=== PATIENT | female | born 2000 | race Two or more races ===

== ENCOUNTER 2022-01-04 13:31 | Inpatient (IN) | payer MEDICAID, OTHER ==
[~2022-01-04] VITALS: Ht 157.5 cm; Wt 128.7 kg
[2022-01-04] MEDS ORDERED: ALUM & MAG HYDROX-SIMETH LIQ(MAALOX) 30 ML PO ONE (15:00)
[2022-01-04] MEDS ORDERED: ONDANSETRON ODT 4 MG TAB PO ONE (15:00)
[2022-01-04 15:21] LABS: Basophils # (auto) 0 10 ^3/uL (0-0.2); Eosinophils # (auto) 0 10 ^3/uL (0-0.8); Mean Corpuscular Volume 82.2 fL (80.0-100.0); Monocytes # (auto) 0.5 10 ^3/uL (0-1.3); Monocytes % (auto) 2.1 % (0.0-12.0)
[2022-01-04 15:24] LABS: Basophils % (auto) 0.1 % (0.0-2.0); Hematocrit 44.5 % (36.0-46.0); Hemoglobin 14.2 g/dL (12.2-16.2); Lymphocytes % (auto) 4.4 % (10.0-50.0); Mean Corpuscular Hemoglobin 26.2 pg (28.0-32.0); Mean Corpuscular Hgb Conc. 31.9 g/dL (32.0-36.0); Neutrophils # (auto) 21.3 10 ^3/uL (1.6-8.6); Neutrophils % (auto) 93.4 % (37.0-80.0); Red Blood Cells 5.41 10^6/uL (4.0-5.20); Red Cell Distribution Width 15.7 % (11.8-14.3); White Blood Cell 22.8 10^3/uL (4.4-10.8)
[2022-01-04 15:26] LABS: Urine Bacteria FEW /hpf (None Seen); Urine Blood TRACE /uL (Negative); Urine Mucus FEW (None Seen); Urine Specific Gravity 1.028 (1.001-1.035); Urine WBC 2 /hpf (0 - 5)
[2022-01-04 15:57] LABS: Albumin 4.1 g/dL (3.4-5.0); BUN/Creatinine Ratio 15.3; Calcium 9.4 mg/dL (8.5-10.1); Potassium 3.8 mmol/L (3.5-5.1)
[2022-01-04 16:00] LABS: Bilirubin, Total 0.5 mg/dL (0.2-1.0); Total Protein 8.6 g/dL (6.4-8.2)
[2022-01-04] MEDS ORDERED: IOHEXOL 300 MG/ML 100ML BOTTLE IJ ONE (17:35)
[2022-01-04] MEDS ORDERED: ONDANSETRON HCL 4 MG/2 ML VIAL IV ONE (18:45)
[2022-01-04] MEDS ORDERED: MORPHINE SULFATE 4 MG/ML SYR/VIAL IV ONE (18:45)
[2022-01-04] MEDS ORDERED: PIPERACILLIN-TAZO 4.5GM 100 ML IV SCH (19:10)
[2022-01-04] MEDS ORDERED: LACTATED RINGER'S 1,000 ML IV ONE (19:15)
[2022-01-04] MEDS ORDERED: VANCOMYCIN 1GM/250ML 250 ML IV SCH ×2 (19:15→23:00)
[2022-01-04] MEDS: POTASSIUM CHLORIDE 20 MEQ in D5W/LACTATED RINGERS 1,000 ML IV SCH (19:45)
[2022-01-04] MEDS ORDERED: D5W/ SOD CHL 0.9%/KCL 20MEQ 0 ML IV ONE (20:59)
[2022-01-04] MEDS: SODIUM CHLOR 0.9% PF (SALINE LOCK) 10ML VIAL/SYR IV SCH (22:00)
[2022-01-04] MEDS: FAMOTIDINE (10MG/ML) 2ML VL IV SCH (22:32)
[2022-01-04] MEDS: MORPHINE SULFATE INJ 2 MG/ml SYRG IV PRN (22:33)
[2022-01-04] MEDS ORDERED: MORPHINE SULFATE INJ 2 MG/ml SYRG IV PRN (22:45)
[2022-01-04] MEDS ORDERED: NITROGLYCERIN 0.4 MG SL TAB SL PRN (22:45)
[2022-01-05] MEDS ORDERED: metroNIDAZOLE 500MG/100ML 100 ML IV SCH
[2022-01-05] MEDS: ONDANSETRON HCL 4 MG/2 ML VIAL IV PRN (01:34)
[2022-01-05] MEDS: VANCOMYCIN 1GM/250ML 250 ML IV SCH ×3 (02:59→20:01)
[2022-01-05] MEDS: PROMETHAZINE HCL 25 MG/ML 1ML IV PRN ×2 (02:59→08:44)
[2022-01-05] MEDS: PIPERACILLIN-TAZO 4.5GM 100 ML IV SCH ×3 (05:06→21:40)
[2022-01-05] MEDS: SODIUM CHLOR 0.9% PF (SALINE LOCK) 10ML VIAL/SYR IV SCH ×3 (06:02→21:40)
[2022-01-05 06:16] LABS: Basophils # (auto) 0 10 ^3/uL (0-0.2); Eosinophils # (auto) 0 10 ^3/uL (0-0.8); Lymphocytes # (auto) 1.7 10 ^3/uL (0.4-5.4); Monocytes # (auto) 0.7 10 ^3/uL (0-1.3); Red Cell Distribution Width 15.8 % (11.8-14.3)
[2022-01-05 06:25] LABS: Basophils % (auto) 0.1 % (0.0-2.0); Hematocrit 39.7 % (36.0-46.0); Hemoglobin 12.8 g/dL (12.2-16.2); Lymphocytes % (auto) 6.6 % (10.0-50.0); Mean Corpuscular Hemoglobin 26.2 pg (28.0-32.0); Mean Corpuscular Hgb Conc. 32.2 g/dL (32.0-36.0); Mean Corpuscular Volume 81.5 fL (80.0-100.0); Monocytes % (auto) 2.6 % (0.0-12.0); Neutrophils # (auto) 23.6 10 ^3/uL (1.6-8.6); Neutrophils % (auto) 90.7 % (37.0-80.0); Red Blood Cells 4.87 10^6/uL (4.0-5.20)
[2022-01-05 06:28] LABS: Albumin 3.3 g/dL (3.4-5.0); Calcium 8.8 mg/dL (8.5-10.1); Potassium 3.6 mmol/L (3.5-5.1)
[2022-01-05 06:32] LABS: BUN/Creatinine Ratio 14.6; Total Protein 7.7 g/dL (6.4-8.2)
[2022-01-05] MEDS: POTASSIUM CHLORIDE 20 MEQ in D5W/LACTATED RINGERS 1,000 ML IV SCH ×2 (07:47→15:57)
[2022-01-05] MEDS: MORPHINE SULFATE INJ 2 MG/ml SYRG IV PRN ×4 (08:33→22:26)
[2022-01-05] MEDS: metroNIDAZOLE 500MG/100ML 100 ML IV SCH ×3 (10:11→15:19)
[2022-01-05] MEDS: FAMOTIDINE (10MG/ML) 2ML VL IV SCH ×2 (10:11→21:40)
[2022-01-05] MEDS ORDERED: SUCCINYLCHOLINE CHLORIDE 20 MG/ML 10ML VIAL IV ONE (10:13)
[2022-01-05 10:24] LABS: INR 1.22 (0.9-1.15); Partial Thromboplastin Time 29.5 sec (24.6-33.4)
[2022-01-05] MEDS ORDERED: NEOSTIGMINE 1 MG/ML INJ (10mg/10ML VIAL) IV ONE (10:26)
[2022-01-05] MEDS ORDERED: GLYCOPYRROLATE 0.2 MG/ML 1ML VIAL IV ONE (10:26)
[2022-01-05] MEDS ORDERED: POVIDONE IODINE 10 % TOPICAL OINT 30GM TOP ONE (10:45)
[2022-01-05] MEDS ORDERED: fentaNYL CITRATE 100 MCG/2 ML VL ONE (10:51)
[2022-01-05] MEDS ORDERED: ROCURONIUM 10MG/ML 10ML VIAL IV ONE (10:52)
[2022-01-05] MEDS ORDERED: MIDAZOLAM HCL 2MG/2ML 2ml VIAL (1mg/ml) ONE (10:52)
[2022-01-05] MEDS ORDERED: LABETALOL HCL 5 MG/ML 4ML SYRINGE IV ONE (11:19)
[2022-01-05] MEDS ORDERED: PROPOFOL 10 MG/ML 20 ML IV ONE ×2 (11:26→11:34)
[2022-01-05] MEDS ORDERED: ONDANSETRON HCL 4 MG/2 ML VIAL ONE (11:37)
[2022-01-05] MEDS ORDERED: HYDROmorphone HCL 2 MG/ML VL/or syr IV ONE (11:58)
[2022-01-05] MEDS ORDERED: HYDROmorphone HCL 2 MG/ML VL/or syr ONE (11:58)
[2022-01-05] MEDS ORDERED: METOCLOPRAMIDE HCL 5MG/ml INJ 2ml VIAL IV PRN (12:00)
[2022-01-05] MEDS ORDERED: HYDROmorphone HCL 2 MG/ML VL/or syr IV PRN ×2 (12:00)
[2022-01-05 13:00] VITALS: BP 135/85
[2022-01-05 17:00] VITALS: BP 133/77
[2022-01-05 22:00] VITALS: BP 119/62
[2022-01-06] MEDS: SODIUM CHLORIDE 0.9% 1,000 ML IV SCH ×2 (00:37→16:06)
[2022-01-06] MEDS: MORPHINE SULFATE INJ 2 MG/ml SYRG IV PRN ×6 (02:16→23:58)
[2022-01-06] MEDS: ONDANSETRON HCL 4 MG/2 ML VIAL IV PRN ×4 (02:23→19:52)
[2022-01-06] MEDS: VANCOMYCIN 1GM/250ML 250 ML IV SCH ×2 (03:01→11:11)
[2022-01-06 04:37] VITALS: BP 124/71
[2022-01-06] MEDS: PIPERACILLIN-TAZO 4.5GM 100 ML IV SCH ×3 (04:41→21:09)
[2022-01-06 06:20] LABS: Basophils # (auto) 0 10 ^3/uL (0-0.2); Basophils % (auto) 0.1 % (0.0-2.0); Eosinophils # (auto) 0 10 ^3/uL (0-0.8); Eosinophils % (auto) 0.1 % (0.0-7.0); Hematocrit 37.5 % (36.0-46.0); Lymphocytes # (auto) 1.5 10 ^3/uL (0.4-5.4); Lymphocytes % (auto) 8.1 % (10.0-50.0); Mean Corpuscular Hemoglobin 27.1 pg (28.0-32.0); Mean Corpuscular Hgb Conc. 32.1 g/dL (32.0-36.0); Mean Corpuscular Volume 84.6 fL (80.0-100.0); Monocytes # (auto) 0.4 10 ^3/uL (0-1.3); Monocytes % (auto) 2.4 % (0.0-12.0); Neutrophils # (auto) 16.4 10 ^3/uL (1.6-8.6); Neutrophils % (auto) 89.3 % (37.0-80.0); Red Blood Cells 4.43 10^6/uL (4.0-5.20); Red Cell Distribution Width 16.2 % (11.8-14.3); White Blood Cell 18.3 10^3/uL (4.4-10.8)
[2022-01-06] MEDS: SODIUM CHLOR 0.9% PF (SALINE LOCK) 10ML VIAL/SYR IV SCH ×3 (06:38→21:09)
[2022-01-06 09:00] VITALS: BP 141/74
[2022-01-06] MEDS: FAMOTIDINE (10MG/ML) 2ML VL IV SCH ×2 (09:24→21:09)
[2022-01-06] MEDS: metroNIDAZOLE 500MG/100ML 100 ML IV SCH (09:24)
[2022-01-06 13:00] VITALS: BP 137/76
[2022-01-06] MEDS ORDERED: GASTROGRAFIN 120 ML SOL ONE (13:06)
[2022-01-06 17:00] VITALS: BP 132/70
[2022-01-06] MEDS: PROMETHAZINE HCL 25 MG/ML 1ML IV PRN ×2 (17:55→23:57)
[2022-01-06 22:00] VITALS: BP 124/79
[2022-01-07] MEDS: SODIUM CHLORIDE 0.9% 1,000 ML IV SCH ×2 (04:02→16:45)
[2022-01-07 05:00] VITALS: BP 132/74
[2022-01-07] MEDS: PIPERACILLIN-TAZO 4.5GM 100 ML IV SCH ×3 (05:04→20:55)
[2022-01-07] MEDS: SODIUM CHLOR 0.9% PF (SALINE LOCK) 10ML VIAL/SYR IV SCH ×3 (05:05→21:02)
[2022-01-07] MEDS: MORPHINE SULFATE INJ 2 MG/ml SYRG IV PRN ×2 (06:24→20:56)
[2022-01-07 08:57] LABS: Basophils # (auto) 0.1 10 ^3/uL (0-0.2); Basophils % (auto) 0.3 % (0.0-2.0); Eosinophils # (auto) 0 10 ^3/uL (0-0.8); Eosinophils % (auto) 0.1 % (0.0-7.0); Hematocrit 38.9 % (36.0-46.0)
[2022-01-07 08:59] LABS: Hemoglobin 12.5 g/dL (12.2-16.2); Lymphocytes # (auto) 1.5 10 ^3/uL (0.4-5.4); Lymphocytes % (auto) 8.2 % (10.0-50.0); Mean Corpuscular Hemoglobin 26.5 pg (28.0-32.0); Mean Corpuscular Hgb Conc. 32.1 g/dL (32.0-36.0); Mean Corpuscular Volume 82.8 fL (80.0-100.0); Monocytes # (auto) 0.8 10 ^3/uL (0-1.3); Monocytes % (auto) 4.5 % (0.0-12.0); Neutrophils # (auto) 15.8 10 ^3/uL (1.6-8.6); Neutrophils % (auto) 86.9 % (37.0-80.0); Red Blood Cells 4.69 10^6/uL (4.0-5.20); Red Cell Distribution Width 15.9 % (11.8-14.3); White Blood Cell 18.2 10^3/uL (4.4-10.8)
[2022-01-07 09:11] VITALS: BP 119/63
[2022-01-07] MEDS: ENOXAPARIN SOD 40 MG/0.4 ML SYRINGE SC SCH (09:37)
[2022-01-07] MEDS: FAMOTIDINE (10MG/ML) 2ML VL IV SCH ×2 (09:37→20:55)
[2022-01-07 13:16] VITALS: BP 144/84
[2022-01-07 17:20] VITALS: BP 113/77
[2022-01-07 22:00] VITALS: BP 108/51
[2022-01-08] MEDS: MORPHINE SULFATE INJ 2 MG/ml SYRG IV PRN ×4 (02:17→20:08)
[2022-01-08] MEDS: SODIUM CHLORIDE 0.9% 1,000 ML IV SCH ×2 (03:17→19:25)
[2022-01-08] MEDS: PIPERACILLIN-TAZO 4.5GM 100 ML IV SCH ×3 (04:37→22:19)
[2022-01-08 05:00] VITALS: BP 131/74
[2022-01-08] MEDS: SODIUM CHLOR 0.9% PF (SALINE LOCK) 10ML VIAL/SYR IV SCH ×3 (05:19→22:20)
[2022-01-08 09:00] VITALS: BP 114/60
[2022-01-08] MEDS: FAMOTIDINE (10MG/ML) 2ML VL IV SCH ×2 (09:11→22:19)
[2022-01-08] MEDS: ENOXAPARIN SOD 40 MG/0.4 ML SYRINGE SC SCH (09:12)
[2022-01-08 11:17] LABS: Basophils # (auto) 0 10 ^3/uL (0-0.2); Eosinophils # (auto) 0.1 10 ^3/uL (0-0.8); Mean Corpuscular Hemoglobin 26.4 pg (28.0-32.0); Mean Corpuscular Hgb Conc. 32.1 g/dL (32.0-36.0); Neutrophils # (auto) 9.4 10 ^3/uL (1.6-8.6); Red Cell Distribution Width 15.5 % (11.8-14.3)
[2022-01-08 11:19] LABS: Basophils % (auto) 0.1 % (0.0-2.0); Eosinophils % (auto) 1.1 % (0.0-7.0); Hematocrit 38.1 % (36.0-46.0); Hemoglobin 12.2 g/dL (12.2-16.2); Mean Corpuscular Volume 82.3 fL (80.0-100.0); Monocytes # (auto) 0.8 10 ^3/uL (0-1.3); Monocytes % (auto) 6.3 % (0.0-12.0); Neutrophils % (auto) 76.5 % (37.0-80.0); Nucleated Red Blood Cells % 0.1 %; Red Blood Cells 4.62 10^6/uL (4.0-5.20); White Blood Cell 12.2 10^3/uL (4.4-10.8)
[2022-01-08 13:00] VITALS: BP 138/68
[2022-01-08] MEDS: PROMETHAZINE HCL 25 MG/ML 1ML IV PRN (13:14)
[2022-01-08 17:00] VITALS: BP 115/72
[2022-01-08 22:00] VITALS: BP 111/64
[2022-01-09] MEDS: MORPHINE SULFATE INJ 2 MG/ml SYRG IV PRN ×4 (04:03→21:46)
[2022-01-09] MEDS: PROMETHAZINE HCL 25 MG/ML 1ML IV PRN (04:10)
[2022-01-09] MEDS: PIPERACILLIN-TAZO 4.5GM 100 ML IV SCH ×3 (04:48→21:16)
[2022-01-09 05:00] VITALS: BP 127/64
[2022-01-09] MEDS: SODIUM CHLOR 0.9% PF (SALINE LOCK) 10ML VIAL/SYR IV SCH ×3 (06:00→21:16)
[2022-01-09 08:00] LABS: Basophils # (auto) 0 10 ^3/uL (0-0.2); Basophils % (auto) 0.3 % (0.0-2.0); Eosinophils # (auto) 0.1 10 ^3/uL (0-0.8); Eosinophils % (auto) 0.7 % (0.0-7.0); Hematocrit 39.6 % (36.0-46.0); Hemoglobin 12.8 g/dL (12.2-16.2); Lymphocytes # (auto) 1.6 10 ^3/uL (0.4-5.4); Lymphocytes % (auto) 11.8 % (10.0-50.0); Mean Corpuscular Hemoglobin 27.2 pg (28.0-32.0); Mean Corpuscular Hgb Conc. 32.4 g/dL (32.0-36.0); Mean Corpuscular Volume 83.9 fL (80.0-100.0); Monocytes % (auto) 7.5 % (0.0-12.0); Neutrophils # (auto) 10.6 10 ^3/uL (1.6-8.6); Neutrophils % (auto) 79.7 % (37.0-80.0); Red Blood Cells 4.72 10^6/uL (4.0-5.20); Red Cell Distribution Width 15.6 % (11.8-14.3); White Blood Cell 13.3 10^3/uL (4.4-10.8)
[2022-01-09 08:19] LABS: BUN/Creatinine Ratio 11.1; Calcium 8.6 mg/dL (8.5-10.1); Magnesium 2.7 mg/dL (1.6-2.6); Potassium 3.3 mmol/L (3.5-5.1)
[2022-01-09] MEDS: SODIUM CHLORIDE 0.9% 1,000 ML IV SCH ×2 (08:45→22:05)
[2022-01-09 09:00] VITALS: BP 126/61
[2022-01-09] MEDS: ENOXAPARIN SOD 40 MG/0.4 ML SYRINGE SC SCH (09:32)
[2022-01-09] MEDS: FAMOTIDINE (10MG/ML) 2ML VL IV SCH ×2 (09:32→21:16)
[2022-01-09 13:00] VITALS: BP 138/76
[2022-01-09 17:11] VITALS: BP 141/83
[2022-01-09 22:00] VITALS: BP 154/67
[2022-01-10] MEDS: MORPHINE SULFATE INJ 2 MG/ml SYRG IV PRN ×2 (03:14→19:50)
[2022-01-10] MEDS: PIPERACILLIN-TAZO 4.5GM 100 ML IV SCH ×3 (04:40→20:54)
[2022-01-10 05:00] VITALS: BP 127/71
[2022-01-10] MEDS: SODIUM CHLOR 0.9% PF (SALINE LOCK) 10ML VIAL/SYR IV SCH ×3 (05:42→22:01)
[2022-01-10] MEDS: ONDANSETRON HCL 4 MG/2 ML VIAL IV PRN ×2 (07:59→17:55)
[2022-01-10 09:00] VITALS: BP 120/70
[2022-01-10] MEDS: FAMOTIDINE (10MG/ML) 2ML VL IV SCH ×2 (10:00→21:56)
[2022-01-10] MEDS: SODIUM CHLORIDE 0.9% 1,000 ML IV SCH ×2 (10:59→20:55)
[2022-01-10] MEDS: ENOXAPARIN SOD 40 MG/0.4 ML SYRINGE SC SCH (11:09)
[2022-01-10 13:00] VITALS: BP 133/78
[2022-01-10 16:47] VITALS: BP 133/81
[2022-01-10 22:00] VITALS: BP 129/67
[2022-01-11] MEDS: ONDANSETRON HCL 4 MG/2 ML VIAL IV PRN (01:44)
[2022-01-11] MEDS: MORPHINE SULFATE INJ 2 MG/ml SYRG IV PRN (01:45)
[2022-01-11 04:07] LABS: Basophils # (auto) 0 10 ^3/uL (0-0.2); Basophils % (auto) 0.2 % (0.0-2.0); Eosinophils # (auto) 0.5 10 ^3/uL (0-0.8)
[2022-01-11 04:09] LABS: Hematocrit 38.6 % (36.0-46.0); Hemoglobin 12.5 g/dL (12.2-16.2); Lymphocytes # (auto) 1.9 10 ^3/uL (0.4-5.4); Lymphocytes % (auto) 11.6 % (10.0-50.0); Mean Corpuscular Hemoglobin 26.6 pg (28.0-32.0); Mean Corpuscular Hgb Conc. 32.4 g/dL (32.0-36.0); Mean Corpuscular Volume 82.1 fL (80.0-100.0); Monocytes # (auto) 1.1 10 ^3/uL (0-1.3); Monocytes % (auto) 6.9 % (0.0-12.0); Neutrophils # (auto) 12.5 10 ^3/uL (1.6-8.6); Neutrophils % (auto) 78.3 % (37.0-80.0); Red Cell Distribution Width 15.7 % (11.8-14.3)
[2022-01-11] MEDS: PIPERACILLIN-TAZO 4.5GM 100 ML IV SCH ×3 (04:57→22:49)
[2022-01-11 05:00] VITALS: BP 129/67
[2022-01-11] MEDS: SODIUM CHLOR 0.9% PF (SALINE LOCK) 10ML VIAL/SYR IV SCH ×3 (05:59→22:00)
[2022-01-11 09:00] VITALS: BP 129/75
[2022-01-11] MEDS: FAMOTIDINE (10MG/ML) 2ML VL IV SCH ×2 (09:03→22:49)
[2022-01-11] MEDS: ENOXAPARIN SOD 40 MG/0.4 ML SYRINGE SC SCH (09:03)
[2022-01-11] MEDS ORDERED: POTASSIUM EFFERVESENT TAB 25 MEQ PO ONE (12:15)
[2022-01-11] MEDS: SODIUM CHLORIDE 0.9% 1,000 ML IV SCH (12:51)
[2022-01-11 13:00] VITALS: BP 111/79
[2022-01-11 17:00] VITALS: BP 104/57
[2022-01-11 22:00] VITALS: BP 116/59
[2022-01-12] MEDS: SODIUM CHLORIDE 0.9% 1,000 ML IV SCH ×2 (03:12→14:05)
[2022-01-12 05:00] VITALS: BP 112/58
[2022-01-12] MEDS: SODIUM CHLOR 0.9% PF (SALINE LOCK) 10ML VIAL/SYR IV SCH ×2 (05:09→14:05)
[2022-01-12] MEDS: PIPERACILLIN-TAZO 4.5GM 100 ML IV SCH (05:09)
[2022-01-12 06:09] LABS: Basophils # (auto) 0 10 ^3/uL (0-0.2); Eosinophils # (auto) 0.4 10 ^3/uL (0-0.8); Neutrophils # (auto) 11.1 10 ^3/uL (1.6-8.6)
[2022-01-12 06:16] LABS: Basophils % (auto) 0.3 % (0.0-2.0); Eosinophils % (auto) 2.7 % (0.0-7.0); Hemoglobin 12.6 g/dL (12.2-16.2); Lymphocytes # (auto) 2.4 10 ^3/uL (0.4-5.4); Lymphocytes % (auto) 16.3 % (10.0-50.0); Mean Corpuscular Hemoglobin 26.6 pg (28.0-32.0); Mean Corpuscular Hgb Conc. 32.3 g/dL (32.0-36.0); Mean Corpuscular Volume 82.2 fL (80.0-100.0); Monocytes # (auto) 0.8 10 ^3/uL (0-1.3); Monocytes % (auto) 5.3 % (0.0-12.0); Neutrophils % (auto) 75.4 % (37.0-80.0); Red Blood Cells 4.75 10^6/uL (4.0-5.20); Red Cell Distribution Width 15.7 % (11.8-14.3); White Blood Cell 14.8 10^3/uL (4.4-10.8)
[2022-01-12 06:21] LABS: Potassium 3.4 mmol/L (3.5-5.1)
[2022-01-12 06:25] LABS: Calcium 8.8 mg/dL (8.5-10.1)
[2022-01-12] MEDS: FAMOTIDINE (10MG/ML) 2ML VL IV SCH (09:25)
[2022-01-12] MEDS: ENOXAPARIN SOD 40 MG/0.4 ML SYRINGE SC SCH (09:26)
[2022-01-12] MEDS ORDERED: AMOX-277 PO (13:23)
[2022-01-12] MEDS ORDERED: CIPR-173 PO (13:59)
[2022-01-12] MEDS ORDERED: CIPROFLOXACIN HCL 500 MG TAB PO SCH (14:00)
[2022-01-12 14:44] VITALS: BP 113/71
[2022-01-12] MEDS ORDERED: METR500T PO (15:37)
[2022-01-12] MEDS ORDERED: metroNIDAZOLE 500 MG TAB PO ONE (15:45)
== END 2022-01-12 16:00 | disposition home or self-care (01) | DRG 233 ==
LOC: ER 13:31 → TELE 22:31 → WEST WING 01-05 12:47
PROVIDERS: ADMIT Nurse Practitioner Family; ATTEND Internal Medicine
PROC: 0D9W40Z Drainage of Peritoneum with Drainage Device, Percutaneous Endoscopic Approach (ICD-10-PCS; 2022-01-05)
PROC: 3E1M48Z Irrigation of Peritoneal Cavity using Irrigating Substance, Percutaneous Endoscopic Approach (ICD-10-PCS; 2022-01-05)
PROC: 0DTJ4ZZ Resection of Appendix, Percutaneous Endoscopic Approach (ICD-10-PCS; principal; 2022-01-05 10:47)
DX: K65.9 Peritonitis, unspecified (principal); Z68.43 Body mass index [BMI] 50.0-59.9, adult; K52.9 Noninfective gastroenteritis and colitis, unspecified; E66.01 Morbid (severe) obesity due to excess calories; N73.9 Female pelvic inflammatory disease, unspecified; E87.6 Hypokalemia; N93.9 Abnormal uterine and vaginal bleeding, unspecified; R14.0 Abdominal distension (gaseous); Z20.822 Contact with and (suspected) exposure to COVID-19; B96.20 Unspecified Escherichia coli [E. coli] as the cause of diseases classified elsewhere
CPT/HCPCS: 36415; 71045; 74018; 74177; 74250; 76705; 80048; 80053; 81001; 81025; 82565; 83605; 83690; 83735; 85025; 85610; 85730; 86850; 86900; 86901; 87070; 87075; 87077; 87186; 87205; 93005; 96365; 96375; G0378; J0330; J2250; J2405; J2543; J2704; J3490; Q0162